=== PATIENT | female | born 1995 ===

== ENCOUNTER 2017-03-17 01:25 | Emergency (ER) | payer MEDICAID ==
[2017-03-17 01:25] VITALS: BMI 42.3
[2017-03-17 01:51] VITALS: BP 139/88; PULSE 102; RESP 18; TEMP 98.3; O2SAT 98
--- NOTE | 2017-03-17 01:54 | ED PDOC ---
HPI: General Adult Time Seen by Provider: 03/17/17 01:41 Chief Complaint (Nursing): Female Genitourinary Chief Complaint (Provider): back pain, abd pain History Per: Patient Additional Complaint(s): 21-year-old female presents to emergency department with lower abdominal pain and back pain. Patient had a Pap smear and pelvic exam earlier at [facility] office. After the procedure she bled slightly and was sent home. Patient states she was out to dinner when she felt a sharp pain in her lower back radiating down her left leg. She states pain wraps around to her abdomen. She denies any vaginal bleeding at present, no dysuria, fever or chills. No associated nausea, vomiting or diarrhea PMD: Verito Sanchez APN Past Medical History Reviewed: Historical Data, Nursing Documentation, Vital Signs Vital Signs: Last Vital Signs Temp 98.3 F 03/17/17 01:44 Pulse 102 H 03/17/17 01:44 Resp 18 03/17/17 01:44 BP 139/88 03/17/17 01:44 Pulse Ox 98 03/17/17 02:13 - Medical History PMH: Asthma - Surgical History Surgical History: Tonsillectomy - Family History Family History: States: No Known Family Hx - Living Arrangements Living Arrangements: With Family - Social History Current smoker - smoking cessation education provided: No Alcohol: None Drugs: Denies - Home Medications Home Medications: Ambulatory Orders Medication Instructions Recorded Fluticasone Nasal [Flonase] 1 spray NS DAILY #0 spr 04/07/15 Ibuprofen [Motrin Tab] 800 mg PO Q8 PRN #20 tab 04/07/15 Oseltamivir Phosphate [Tamiflu] 75 mg PO BID #10 tab 04/07/15 Albuterol HFA [Ventolin HFA 90 1 - 2 puff IH Q4H PRN #1 bottle 06/21/15 mcg/actuation (8 g)] Prednisone 40 mg PO DAILY #8 tablet 06/21/15 Cyclobenzaprine [Cyclobenzaprine 10 mg PO TID PRN #20 tab 03/17/17 HCl] Naproxen [Naprosyn] 500 mg PO BID #20 tab 03/17/17 Nitrofurantoin Macrocrystals 100 mg PO BID #14 cap 03/17/17 [Macrobid] - Allergies Allergies/Adverse Reactions: Allergies Allergy/AdvReac Type Severity Reaction Status Date / Time cat holden Allergy RASH Verified 03/17/17 01:49 Review of Systems ROS Statement: Except As Marked, All Systems Reviewed And Found Negative Constitutional: Negative for: Fever Gastrointestinal: Positive for: Abdominal Pain. Negative for: Nausea, Vomiting , Diarrhea Musculoskeletal: Positive for: Back Pain Physical Exam - Reviewed Nursing Documentation Reviewed: Yes Vital Signs Reviewed: Yes - Physical Exam Appears: Positive for: Well, Non-toxic, No Acute Distress Skin: Negative for: Rash Eye Exam: Positive for: Normal appearance Cardiovascular/Chest: Positive for: Regular Rate, Rhythm Respiratory: Positive for: Normal Breath Sounds Gastrointestinal/Abdominal: Positive for: Soft. Negative for: Tenderness, Distended, Guarding, Rebound Back: Positive for: Vertebral Tenderness (lumbar), Muscle Spasm. Negative for: L CVA Tenderness, R CVA Tenderness Extremity: Positive for: Normal ROM Neurologic/Psych: Positive for: Alert, Oriented, Gait (steady) - Laboratory Results Urine POC: Negative Urine dip results: Positive for: Leukocyte Esterase (small). Negative for: Blood, Nitrate, Ketones, Glucose, Bilirubin, Protein - ECG O2 Sat by Pulse Oximetry: 98 Pulse Ox Interpretation: Normal Medical Decision Making Medical Decision Makin21 year old with low back pain and abd pain Plan: Urine test, urine dip IM toradol PO flexeril PO tylenol PO tramadol Patient reports improvement to pain after medications given. UTI is noted. Prescription provided for Macrobid along with Naprosyn and Flexeril for pain control. Struck to follow up with primary doctor or [facility] in 2-3 days. Disposition - Clinical Impression Clinical Impression: Urinary tract infection, Back pain - Patient ED Disposition Is Patient to be Admitted: No Counseled Patient/Family Regarding: Studies Performed, Diagnosis, Need For Followup, Rx Given - Disposition [facility] Disposition: Routine/Home Disposition Time: 03:48 Condition: IMPROVED Additional Instructions: Take prescription medications as directed. Follow-up with primary doctor or [facility] in 2-3 days. Prescriptions: Cyclobenzaprine [Cyclobenzaprine HCl] 10 mg PO TID PRN #20 tab PRN Reason: Muscle Spasm Naproxen [Naprosyn] 500 mg PO BID #20 tab Nitrofurantoin Macrocrystals [Macrobid] 100 mg PO BID #14 cap Instructions: Back Pain (ED), Urinary Tract Infection in Women (ED) Forms: [facility] ([place])
[2017-03-17 03:38] LABS: SQUAMOUS EPITHIAL 2 /hpf (0-5); URINE BILIRUBIN NEGATIVE (NEGATIVE); URINE BLOOD SMALL (NEGATIVE); URINE CLARITY CLEAR (Clear); URINE COLOR STRAW (YELLOW); URINE GLUCOSE (UA) NEG (Normal); URINE LEUKOCYTE ESTERASE SMALL Leu/uL (Negative); URINE NITRATE NEGATIVE (NEGATIVE); URINE PROTEIN NEGATIVE (NEGATIVE); URINE UROBILINOGEN 0.2-1.0 mg/dL (0.2-1.0)
== END 2017-03-17 04:00 | disposition home or self-care (01) ==
LOC: H.ER 01:25
DX: N39.0 Urinary tract infection, site not specified (principal); J45.909 Unspecified asthma, uncomplicated; M54.5 Low back pain
CPT/HCPCS: 81003; 81025; 87086; 96372; 99282; J1885